=== PATIENT | male | born 1955 | race Two or more races ===

== ENCOUNTER 2016-10-26 08:02 | Emergency (ER) | payer SELFPAY ==
[~2016-10-26] VITALS: Ht 170.2 cm; Wt 81.6 kg
[2016-10-26 08:15] VITALS: BP 135/71
[2016-10-26] MEDS ORDERED: TETANUS-DIPTH-ACEL PERTUSSIS 0.5ML SYRG IM ONE (09:15)
[2016-10-26] MEDS ORDERED: SILVER SULFADIAZINE 1 % TOPICAL CREAM 50GM TOP ONE (09:15)
== END 2016-10-26 09:36 | disposition home or self-care (01) ==
LOC: ER 08:02
DX: T21.11XA Burn of first degree of chest wall, initial encounter (principal); T21.12XA Burn of first degree of abdominal wall, initial encounter; T31.11 Burns involving 10-19% of body surface with 10-19% third degree burns; Z23 Encounter for immunization; X11.8XXA Contact with other hot tap-water, initial encounter; Y93.89 Activity, other specified; Y99.8 Other external cause status; Y92.89 Other specified places as the place of occurrence of the external cause
CPT/HCPCS: 16000; 90471; 90715

== ENCOUNTER 2016-10-29 08:46 | Emergency (ER) | payer SELFPAY ==
[~2016-10-29] VITALS: Ht 170.2 cm; Wt 85.7 kg
[2016-10-29 08:50] VITALS: BP 155/121
== END 2016-10-29 09:52 | disposition home or self-care (01) ==
LOC: ER 08:47
DX: T21.21XD Burn of second degree of chest wall, subsequent encounter (principal)

== ENCOUNTER 2016-10-31 08:40 | Emergency (ER) | payer SELFPAY ==
[~2016-10-31] VITALS: Ht 170.2 cm; Wt 81.6 kg
[2016-10-31 08:53] VITALS: BP 121/79
== END 2016-10-31 09:18 | disposition home or self-care (01) ==
LOC: ER 08:43
DX: T21.02XD Burn of unspecified degree of abdominal wall, subsequent encounter (principal); T21.01XD Burn of unspecified degree of chest wall, subsequent encounter; X08.8XXA Exposure to other specified smoke, fire and flames, initial encounter; Y93.89 Activity, other specified; Y99.8 Other external cause status; Y92.89 Other specified places as the place of occurrence of the external cause
CPT/HCPCS: 99281; J7030

== ENCOUNTER 2016-12-11 16:30 | Inpatient (IN) | payer SELFPAY ==
[~2016-12-11] VITALS: Ht 170.2 cm; Wt 88.2 kg
[2016-12-11 16:56] LABS: CONDITION Y; DEFINITIVE SEE PRINTOUT; Hematocrit 46.5 % (41.0-53.0); Mean Corpuscular Hemoglobin 31.2 pg (28.0-32.0); Mean Corpuscular Hgb Conc. 34.4 g/dL (32.0-36.0); Mean Corpuscular Volume 90.8 fL (80.0-100.0); Mean Platelet Volume 8.8 fL (7.4-10.4); Platelet Count (auto) 246 10^3/uL (140-450); Red Cell Distribution Width 13.8 % (11.6-16.0); SUSPECT SEE PRINTOUT; White Blood Cell 26.8 10^3/uL (4.4-10.8)
[2016-12-11 17:13] LABS: Chloride 102 mmol/L (98-107); Potassium 3.5 mmol/L (3.5-5.1); Sodium 134 mmol/L (136-145)
[2016-12-11 17:13] LABS: Urine Bilirubin Negative (Negative); Urine Color Yellow (Yellow); Urine Glucose Normal (Normal); Urine Ketone Negative (Negative); Urine Mucus FEW (None Seen); Urine RBC 18 /hpf (0 - 3); Urine Squamous Epithelial Cell FEW /hpf (<5); Urine WBC Clumps PRESENT /hpf (None Seen)
[2016-12-11 17:15] LABS: Metamyelocytes % 0; Myelocytes % 0; Promyelocytes % 0; Reactive Lymphocytes 0
[2016-12-11 17:23] LABS: Albumin 3.7 g/dL (3.4-5.0); Alkaline Phosphatase 93 U/L (45-117); Anion Gap 10 (5-15); BUN/Creatinine Ratio 11.5; Bilirubin, Total 2.3 mg/dL (0.2-1.0); Blood Urea Nitrogen 11 mg/dL (7-18); Calcium 8.5 mg/dL (8.5-10.1); Carbon Dioxide 22 mmol/L (21-32); GFR African American 103 mL/min; GFR Non-African American 85 mL/min; Glucose 104 mg/dL (74-106); Total Protein 7.6 g/dL (6.4-8.2)
[2016-12-11 17:30] LABS: Aspartate Aminotransferase 34 U/L (15-37)
[2016-12-11 17:32] LABS: Giant Platelets Few; Platelet Estimate Adequate; Stomatocytes Few
[2016-12-11 17:40] LABS: Urine Blood 2+ /uL (Negative); Urine Nitrite POSITIVE (Negative)
[2016-12-11] MEDS ORDERED: LEVOFLOXACIN 500MG 100 ML IV ONE (19:00)
[2016-12-11] MEDS ORDERED: KETOROLAC TROMETH 30 MG/ML 1ML VIAL IV ONE (19:00)
[2016-12-11] MEDS ORDERED: cefTRIAXone 1GM/50ML D5W 50 ML IV ONE (19:00)
[2016-12-11] MEDS: SODIUM CHLORIDE 0.9% 1,000 ML IV ONE ×2 (19:00→20:40)
[2016-12-11] MEDS ORDERED: SODIUM CHLORIDE 0.9% 1,000 ML IV ONE (19:15)
[2016-12-11] MEDS ORDERED: ENOXAPARIN SOD 40 MG/0.4 ML SYRINGE SC SCH (21:00)
[2016-12-11] MEDS: SODIUM CHLORIDE 0.9% 1,000 ML IV SCH (21:44)
[2016-12-11 22:00] VITALS: BP 121/75
[2016-12-11 22:30] VITALS: BP 121/75
[2016-12-12] MEDS: SODIUM CHLORIDE 0.9% 1,000 ML IV SCH ×3 (03:20→20:40)
[2016-12-12 05:00] VITALS: BP 121/79
[2016-12-12 05:19] LABS: Basophils # (auto) 0.1 uL; Basophils % (auto) 0.3 % (0.0-2.0); CONDITION Y; Eosinophils # (auto) 0 uL; Eosinophils % (auto) 0.1 % (0.0-7.0); Hematocrit 44.7 % (41.0-53.0); Hemoglobin 15.4 g/dL (13.5-17.5); Lymphocytes % (auto) 5.3 % (10.0-50.0); Mean Corpuscular Hemoglobin 31.3 pg (28.0-32.0); Mean Corpuscular Hgb Conc. 34.5 g/dL (32.0-36.0); Mean Corpuscular Volume 90.8 fL (80.0-100.0); Mean Platelet Volume 9.1 fL (7.4-10.4); Monocytes # (auto) 1.5 uL; Neutrophils # (auto) 16.1 uL; Neutrophils % (auto) 86.3 % (37.0-80.0); Platelet Count (auto) 224 10^3/uL (140-450); Red Cell Distribution Width 14.2 % (11.6-16.0); White Blood Cell 18.7 10^3/uL (4.4-10.8)
[2016-12-12 05:40] LABS: Potassium 3.8 mmol/L (3.5-5.1)
[2016-12-12 05:42] LABS: BUN/Creatinine Ratio 14.3
[2016-12-12 05:45] LABS: Bilirubin, Total 1.6 mg/dL (0.2-1.0); Total Protein 6.6 g/dL (6.4-8.2)
[2016-12-12 08:49] VITALS: BP 141/86
[2016-12-12] MEDS: cefTRIAXone 1GM/50ML D5W 50 ML IV SCH (09:30)
[2016-12-12] MEDS ORDERED: PANTOPRAZOLE 40 MG/10 ML VIAL IV SCH (10:00)
[2016-12-12] MEDS: LEVOFLOXACIN 500MG 100 ML IV SCH (11:19)
[2016-12-12 12:28] VITALS: BP 124/74
[2016-12-12] MEDS: KETOROLAC TROMETH 30 MG/ML 1ML VIAL IV PRN ×2 (15:50→22:01)
[2016-12-12 16:54] VITALS: BP 140/89
[2016-12-12 22:00] VITALS: BP 115/75
[2016-12-13 05:00] VITALS: BP 120/85
[2016-12-13 05:28] LABS: Basophils # (auto) 0 uL; Basophils % (auto) 0.3 % (0.0-2.0); CONDITION Y; Eosinophils # (auto) 0.2 uL; Eosinophils % (auto) 2.3 % (0.0-7.0); Hematocrit 43.5 % (41.0-53.0); Hemoglobin 14.9 g/dL (13.5-17.5); Lymphocytes % (auto) 10.5 % (10.0-50.0); Mean Corpuscular Hemoglobin 31.5 pg (28.0-32.0); Mean Corpuscular Hgb Conc. 34.3 g/dL (32.0-36.0); Mean Corpuscular Volume 91.7 fL (80.0-100.0); Mean Platelet Volume 9.1 fL (7.4-10.4); Monocytes # (auto) 1.2 uL; Monocytes % (auto) 12.6 % (0.0-12.0); Neutrophils # (auto) 7.2 uL; Neutrophils % (auto) 74.3 % (37.0-80.0); Platelet Count (auto) 217 10^3/uL (140-450); Red Cell Distribution Width 14.2 % (11.6-16.0); White Blood Cell 9.8 10^3/uL (4.4-10.8)
[2016-12-13 05:54] LABS: BUN/Creatinine Ratio 17.5; Calcium 7.7 mg/dL (8.5-10.1); Potassium 3.9 mmol/L (3.5-5.1)
[2016-12-13] MEDS: SODIUM CHLORIDE 0.9% 1,000 ML IV SCH (06:50)
[2016-12-13 08:24] VITALS: BP 116/74
[2016-12-13] MEDS: cefTRIAXone 1GM/50ML D5W 50 ML IV SCH (09:16)
[2016-12-13] MEDS: LEVOFLOXACIN 500MG 100 ML IV SCH (10:33)
[2016-12-13] MEDS: KETOROLAC TROMETH 30 MG/ML 1ML VIAL IV PRN (10:39)
[2016-12-13 12:28] VITALS: BP 102/72
[2016-12-13 15:05] VITALS: BP 102/72
== END 2016-12-13 15:50 | disposition home or self-care (01) | DRG 872 ==
LOC: ER 16:34 → OVERFLOW 16:35 → WEST WING 21:20
PROVIDERS: ADMIT Family Medicine; ATTEND Family Medicine
DX: A41.9 Sepsis, unspecified organism (principal); N39.0 Urinary tract infection, site not specified; B96.20 Unspecified Escherichia coli [E. coli] as the cause of diseases classified elsewhere; K40.90 Unilateral inguinal hernia, without obstruction or gangrene, not specified as recurrent; N43.3 Hydrocele, unspecified
CPT/HCPCS: 36415; 76775; 76870; 80048; 80053; 81001; 83605; 84484; 85007; 85025; 85027; 87040; 87086; 87088; 87186; 96372; 96374; 96375; 99291; C9113; J0696; J1885; J1956

== ENCOUNTER 2017-12-17 09:58 | Emergency (ER) | payer SELFPAY ==
[~2017-12-17] VITALS: Ht 170.2 cm; Wt 81.6 kg
[2017-12-17 10:09] VITALS: BP 131/80
[2017-12-17] MEDS ORDERED: KETOROLAC TROMETH 60MG/2ML VIAL IM ONE (10:45)
== END 2017-12-17 11:37 | disposition home or self-care (01) ==
LOC: ER 09:58
DX: G89.29 Other chronic pain (principal); M54.5 Low back pain
CPT/HCPCS: 72100; 93005; 96372; 99284; J1885

== ENCOUNTER 2019-06-16 12:33 | Emergency (ER) | payer MEDICAID ==
[~2019-06-16] VITALS: Ht 170.2 cm; Wt 90.7 kg
[~2019-06-16 12:33] MED LIST: ALBUAER3 IN; CLIN150C PO; LACT10SO3 PO; LEVO750T64 PO; TIOTCAP IN
[2019-06-16 12:39] VITALS: BP 134/80
[2019-06-16] MEDS ORDERED: KETOROLAC TROMETH 60MG/2ML VIAL IM ONE (14:00)
== END 2019-06-16 14:22 | disposition home or self-care (01) ==
LOC: ER 12:36
DX: M17.11 Unilateral primary osteoarthritis, right knee (principal); F17.210 Nicotine dependence, cigarettes, uncomplicated; Z79.899 Other long term (current) drug therapy
CPT/HCPCS: 73562; 96372; 99283; J1885